=== PATIENT | male | born 1970 | race Caucasian/White ===

== ENCOUNTER 2017-06-25 17:53 | Emergency (ER) | payer MEDICAID ==
[~2017-06-25] VITALS: Ht 170.2 cm; Wt 65.8 kg
--- NOTE | 2017-06-25 18:00 | NUR ---
ASIA FROM [facility] FOR PYSCHIATRIC EVALUATION. PATIENT VERBALIZED HE WANNA GO ON KILLING SPREE AND KILL HIMSELF. DID NOT STATE ANY SPECIFIC PLAN. PATIENT'S VSS. SUICIDAL PRECAUTION OBSERVED. VSS
--- NOTE | 2017-06-25 18:04 | NUR ---
MD HUDSON AT BEDSIDE
[2017-06-25 18:13] LABS: BASOPHILS % (AUTO) 0.6 % (0.0-2.0); EOSINOPHILS % (AUTO) 0.9 % (0.0-6.0); HEMATOCRIT 40 % (39-51); HEMOGLOBIN 13.3 g/dL (13.5-17.5); LYMPHOCYTES # (AUTO) 1.1 /CMM (0.8-4.8); LYMPHOCYTES % (AUTO) 26.6 % (20.0-44.0); MEAN CORPUSCULAR HEMOGLOBIN 28 PG (26.0-33.0); MEAN CORPUSCULAR HGB CONC 34 g/dl (31.0-36.0); MEAN CORPUSCULAR VOLUME 83 fL (80-96); MONOCYTES # (AUTO) 0.4 /CMM (0.1-1.30); MONOCYTES % (AUTO) 9.8 % (2.0-12.0); NEUTROPHILS # (AUTO) 2.5 /CMM (1.8-8.9); NEUTROPHILS % (AUTO) 62.1 % (43.0-81.0); PLATELET COUNT (AUTO) 205 /CMM (150-450); RDW COEFFICIENT OF VARIATION 14.6 (11.5-15.0); RED BLOOD CELL COUNT(AUTO) 4.78 MIL/uL (4.5-6.0)
[2017-06-25 18:25] LABS: ALCOHOL, BLOOD < 3 mg/dL (0-0); CARBON DIOXIDE 26 mmol/L (21-32); CHLORIDE 103 mmol/L (98-107); CREATININE 0.8 mg/dL (0.6-1.3); GLUCOSE 109 mg/dL (74-106); POTASSIUM 3.5 mmol/L (3.5-5.1); SODIUM SERUM 137 mmol/L (136-145); UREA NITROGEN, BLOOD 11 mg/dL (7-18)
--- NOTE | 2017-06-25 19:02 | NUR ---
CALLED [facility]AN[facility] GROUND HOST/HOSTESS,ETA 1 HR.
--- NOTE | 2017-06-25 20:56 | NUR ---
REPORT GIVEN TO SHAHBAZ KING FORM DANII BRAUN FOR FRITZ
[2017-06-25 21:00] VITALS: BP 118/60
--- NOTE | 2017-06-25 21:45 | NUR ---
PATIENT TRANSFERRED/ DISCHARGED TO [facility]. PT VERBALIZED UNDERSTANDING OF PLAN OF CARE. TAXI VOUCHER PROVIDED.
== END 2017-06-25 21:47 | disposition home or self-care (01) ==
LOC: ER 17:55
DX: R45.851 Suicidal ideations (principal); F19.10 Other psychoactive substance abuse, uncomplicated; B19.20 Unspecified viral hepatitis C without hepatic coma; R45.850 Homicidal ideations; F20.9 Schizophrenia, unspecified; F31.9 Bipolar disorder, unspecified
CPT/HCPCS: 36415; 80048; 80305; 85025; 99285; A4606; G0480; Z7610

== ENCOUNTER 2017-06-30 10:24 | Emergency (ER) | payer MEDICAID ==
[~2017-06-30] VITALS: Ht 170.2 cm; Wt 61.2 kg
[2017-06-30 10:54] LABS: BASOPHILS % (AUTO) 0.1 % (0.0-2.0); EOSINOPHILS # (AUTO) 0.1 /CMM (0.0-0.7); EOSINOPHILS % (AUTO) 3.3 % (0.0-6.0); HEMATOCRIT 38 % (39-51); HEMOGLOBIN 12.7 g/dL (13.5-17.5); LYMPHOCYTES # (AUTO) 0.7 /CMM (0.8-4.8); LYMPHOCYTES % (AUTO) 19.4 % (20.0-44.0); MEAN CORPUSCULAR HEMOGLOBIN 28 PG (26.0-33.0); MEAN CORPUSCULAR HGB CONC 34 g/dl (31.0-36.0); MEAN CORPUSCULAR VOLUME 83 fL (80-96); MONOCYTES # (AUTO) 0.4 /CMM (0.1-1.30); MONOCYTES % (AUTO) 11.6 % (2.0-12.0); NEUTROPHILS # (AUTO) 2.5 /CMM (1.8-8.9); NEUTROPHILS % (AUTO) 65.6 % (43.0-81.0); PLATELET COUNT (AUTO) 171 /CMM (150-450); RDW COEFFICIENT OF VARIATION 15.4 (11.5-15.0); RED BLOOD CELL COUNT(AUTO) 4.53 MIL/uL (4.5-6.0); WHITE BLOOD COUNT (AUTO) 3.9 K/uL (4.3-11.0)
[2017-06-30] MEDS ORDERED: HYDROCODONE/APAP 5/325MG 1 EACH TABLET PO ONE (11:00)
[2017-06-30] MEDS ORDERED: PERMETHRIN 5% CRM 60 GM TUBE TP ONE (11:00)
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
[2017-06-30 11:03] LABS: BILIRUBIN,DIRECT 0.1 mg/dL (0.0-0.2); BILIRUBIN,TOTAL 0.3 mg/dL (0.2-1.0); CALCIUM, SERUM 8.1 mg/dL (8.5-10.1); CREATININE 0.9 mg/dL (0.6-1.3); POTASSIUM 3.3 mmol/L (3.5-5.1); TOTAL PROTEIN, SERUM 6.7 g/dL (6.4-8.2)
--- NOTE | 2017-06-30 11:06 | NUR ---
PT KNOCKED DOWN THE MONITOR, SPITTING IN THE FLOOR AND THREATENING EVERYBODY. ERMD MADE AWARE. ORDER FOR 4 PT RESTRAINT.
[2017-06-30] MEDS ORDERED: HALOPERIDOL LACTATE INJ 5 MG/ML VIAL ONE (11:11)
[2017-06-30] MEDS ORDERED: LORAZEPAM INJ 2 MG/ML VIAL ONE (11:12)
--- NOTE | 2017-06-30 11:29 | NUR ---
MARVIN RN AT BEDSIDE FOR PSYCH EVAL.
[2017-06-30] MEDS ORDERED: HALOPERIDOL LACTATE INJ 5 MG/ML VIAL IM ONE (11:30)
[2017-06-30] MEDS ORDERED: LORAZEPAM INJ 2 MG/ML VIAL IM ONE (11:30)
[2017-06-30 11:38] LABS: APPEARANCE,URINE Clear (CLEAR); BILIRUBIN,URINE Negative (NEGATIVE); BLOOD, URINE Negative Ery/uL (NEGATIVE); COLOR,URINE Yellow (YELLOW); KETONES,URINE Negative (NEGATIVE); LEUKOCYTE ESTERASE ,URINE Negative (NEGATIVE); NITRITE, URINE Negative (NEGATIVE); PH,URINE 6.5 (5.0-8.0); PROTEIN,URINE Trace mg/dl (NEGATIVE); UGLUCOSE Negative (NEGATIVE); UROBILINOGEN,URINE 0.2 EU/dL (0.2)
[2017-06-30 11:42] LABS: BACTERIA,URINE Rare /HPF (None Seen); RBC,URINE 0-2 /HPF (0-2); SQUAMOUS EPITHELIAL CELL,UR Few /HPF (None Seen); WBC,URINE 0-2 /HPF (0-3)
--- NOTE | 2017-06-30 13:00 | NUR ---
PT IS SLEEPING. ON MONITOR. STABLE VITALS. WILL CONT TO MONITOR.
--- NOTE | 2017-06-30 13:30 | NUR ---
PT IS SLEEPING. 4 PT RESTRAINTS DISCONTINUED PER ERMD ORDER. WILL CONTINUE TO MONITOR PT.
--- NOTE | 2017-06-30 15:30 | NUR ---
SLEEPING IN BED. ON MONITOR. STABLE VITALS.
--- NOTE | 2017-06-30 19:05 | NUR ---
PT WAS PROVIDED W/ SANDWICH AND ORAL FLUIDS. STABLE VITALS. COOPERATIVE AND RELAXED AT THIS TIME. WILL CONT TO MONITOR.
--- NOTE | 2017-06-30 22:00 | NUR ---
PT IS AWAKE. COOPERATIVE TO STAFF. DIRECTED TO WASH ENTIRE BODY TO GET OFF PERMETHRINE CREAM DIRECTED. PROVIDED W/ [place] GOWN.
--- NOTE | 2017-06-30 23:39 | NUR ---
REPORT TO CHARGE NURSE ANGEL FOR FRITZ.
--- NOTE | 2017-07-01 03:00 | NUR ---
PATIENT AWAKE, VSS
--- NOTE | 2017-07-01 09:35 | NUR ---
CALLED [facility], AT [phone], BABAR FOR DISCHARGES
--- NOTE | 2017-07-01 11:00 | NUR ---
ASSUME PT CARE. RESTING IN BED. AWAKE. CALM. COOPERATIVE. VITALS TAKEN. STABLE. ALL NEEDS PROVIDED. WILL CONTINUE TO MONITOR.
--- NOTE | 2017-07-01 14:15 | NUR ---
PT NOW IS C/O BACK PAIN. [place] [employer] MADE AWARE.
[2017-07-01] MEDS ORDERED: HYDROCODONE/APAP 5/325MG 1 EACH TABLET ONE (14:23)
--- NOTE | 2017-07-01 14:25 | NUR ---
SPOKE TO PHARMACY REGARDING PT'S DISCHARGE STATUS W/ OMNICEL. WILL NOT BRING ORDERED MEDICATION AND WAS TOLD TO TALK TO ADMITTING.
[2017-07-01] MEDS ORDERED: HYDROCODONE/APAP 5/325MG 1 EACH TABLET PO ONE (14:30)
--- NOTE | 2017-07-01 19:34 | NUR ---
RN Inspector [employer] called for sitter.
--- NOTE | 2017-07-01 20:09 | NUR ---
CALLED [facility] TO FOLLOW UP WITH AN UPDATE, SPOKE WITH LOI SHE SAID SHE SAID THEIR FACILITY IS FULL AND CANT ACCEPT ANY PATIENTS.
--- NOTE | 2017-07-01 23:38 | NUR ---
pt ambulatory w/ steady gait to nurse's station, inquiring on status. pt updated on status. Awaiting for available bed at [facility].
--- NOTE | 2017-07-02 00:02 | NUR ---
pt ambulatory w/ steady gait to restroom, resp even & unlabored nad noted. Vidor and water provided.
--- NOTE | 2017-07-02 01:10 | NUR ---
pt sitting in bed, watching tv w/ resp even & unlabored, nad noted.
--- NOTE | 2017-07-02 03:04 | NUR ---
PT AMBULATORY W/ STEADY GAIT TO NURSE'S STATION, INQUIRING ON STATUS. ADVISED NO AVAILABLE BEDS AT [facility] AT THIS TIME. AWAITING BED.
--- NOTE | 2017-07-02 05:55 | NUR ---
PER LILI AT [facility], NO AVAILABLE BEDS AT THIS TIME, PENDING PT DISCHARGES IN AM, TO CHECK BACK AFTER 8AM.
--- NOTE | 2017-07-02 06:59 | NUR ---
DIETARY CALLED FOR REG SAFETY TRAY.
[2017-07-02 07:00] VITALS: BP 112/77
--- NOTE | 2017-07-02 07:21 | NUR ---
WALKED OUT OF ER WITH HIS BELONGINGS IN A ROLLING CART,NAD,DENIES SUICIDAL IDEATION AT THIS TIME,INSTRUCTED TO COME BACK IF HE NEEDS HELP.
== END 2017-07-02 07:35 | disposition left against medical advice (07) ==
LOC: ER 10:24
DX: R45.851 Suicidal ideations (principal); K85.90 Acute pancreatitis without necrosis or infection, unspecified; B19.20 Unspecified viral hepatitis C without hepatic coma; F17.210 Nicotine dependence, cigarettes, uncomplicated; G89.29 Other chronic pain; R45.850 Homicidal ideations
CPT/HCPCS: 36415; 71010-TC; 80048-TC; 80076-TC; 81000-TC; 83690-TC; 85025-TC; A4606; J1630; J2060; Z7610

== ENCOUNTER 2017-07-16 08:33 | Emergency (ER) | payer MEDICAID ==
[~2017-07-16] VITALS: Ht 175.3 cm; Wt 72.6 kg
--- NOTE | 2017-07-16 08:33 | NUR ---
BB SELF SUICIDAL IDEATION NO PLANS PT HOMICIDAL TO HURT HIS PCP.
[2017-07-16 09:07] LABS: BASOPHILS % (AUTO) 0.4 % (0.0-2.0); EOSINOPHILS # (AUTO) 0.1 /CMM (0.0-0.7); EOSINOPHILS % (AUTO) 1.9 % (0.0-6.0); HEMATOCRIT 40 % (39-51); HEMOGLOBIN 13.6 g/dL (13.5-17.5); LYMPHOCYTES # (AUTO) 0.8 /CMM (0.8-4.8); MEAN CORPUSCULAR HEMOGLOBIN 29 PG (26.0-33.0); MEAN CORPUSCULAR HGB CONC 34 g/dl (31.0-36.0); MEAN CORPUSCULAR VOLUME 83 fL (80-96); MONOCYTES # (AUTO) 0.4 /CMM (0.1-1.30); MONOCYTES % (AUTO) 14.4 % (2.0-12.0); NEUTROPHILS # (AUTO) 1.5 /CMM (1.8-8.9); NEUTROPHILS % (AUTO) 53.3 % (43.0-81.0); PLATELET COUNT (AUTO) 170 /CMM (150-450); RDW COEFFICIENT OF VARIATION 14.5 (11.5-15.0); RED BLOOD CELL COUNT(AUTO) 4.79 MIL/uL (4.5-6.0); WHITE BLOOD COUNT (AUTO) 2.8 K/uL (4.3-11.0)
--- NOTE | 2017-07-16 09:12 | NUR ---
CHRIS AUSTIN LCSW CALLED FOR PSYCH EVAL
[2017-07-16 09:25] LABS: ALANINE AMINOTRANSFERASE 61 U/L (12-78); ALBUMIN 3.6 g/dL (3.4-5.0); ALCOHOL, BLOOD < 3 mg/dL (0-0); ALKALINE PHOSPHATASE 119 U/L (46-116); ASPARTATE AMINOTRANSFERASE 78 U/L (15-37); BILIRUBIN,DIRECT 0.2 mg/dL (0.0-0.2); BILIRUBIN,TOTAL 0.6 mg/dL (0.2-1.0); CALCIUM, SERUM 8.7 mg/dL (8.5-10.1); CARBON DIOXIDE 28 mmol/L (21-32); CHLORIDE 103 mmol/L (98-107); GLUCOSE 103 mg/dL (74-106); POTASSIUM 3.7 mmol/L (3.5-5.1); SODIUM SERUM 137 mmol/L (136-145); UREA NITROGEN, BLOOD 26 mg/dL (7-18)
[2017-07-16 09:26] LABS: ACETAMINOPHEN 0 ug/ml (10-30)
--- NOTE | 2017-07-16 09:28 | NUR ---
URINE SAMPLE COLLECTED SENT TO LAB
[2017-07-16 09:51] LABS: APPEARANCE,URINE SL CLOUDY (CLEAR); BILIRUBIN,URINE NEGATIVE (NEGATIVE); BLOOD, URINE NEGATIVE Ery/uL (NEGATIVE); KETONES,URINE NEGATIVE (NEGATIVE); LEUKOCYTE ESTERASE ,URINE NEGATIVE (NEGATIVE); NITRITE, URINE NEGATIVE (NEGATIVE); PROTEIN,URINE TRACE mg/dl (NEGATIVE); UGLUCOSE NEGATIVE (NEGATIVE)
[2017-07-16 09:52] LABS: COLOR,URINE DARK YELLOW (YELLOW)
[2017-07-16 10:14] LABS: BACTERIA,URINE None seen /HPF (None Seen); RBC,URINE 0-3 /HPF (0-2); SQUAMOUS EPITHELIAL CELL,UR Few /HPF (None Seen)
[2017-07-16 10:47] LABS: BAND % (MANUAL) 1 % (0.0-5.0); EOSINOPHILS % (MANUAL) 4 % (0-4); LYMPHOCYTES % (MANUAL) 28 % (16-48); MONOCYTES % (MANUAL) 12 % (0-11.0); NEUTROPHILS % (MANUAL) 55 (42-76)
--- NOTE | 2017-07-16 11:48 | NUR ---
CALLED [facility] FOR TRANSPORT ETA [phone] TRIP#[id number]
--- NOTE | 2017-07-16 12:02 | NUR ---
PATIENT WILL BE TRANSFFERD TO [facility] WILL BE ACCEPTING NUMBER TO GIVE REPORT EXT [phone]
[2017-07-16 12:22] VITALS: BP 123/78
--- NOTE | 2017-07-16 12:24 | NUR ---
REPORT GIVEN TO YARED AT [facility]. AWAITING TRANSFER.
== END 2017-07-16 12:52 ==
LOC: ER 08:34
DX: F29 Unspecified psychosis not due to a substance or known physiological condition (principal); B19.20 Unspecified viral hepatitis C without hepatic coma; F17.200 Nicotine dependence, unspecified, uncomplicated; F31.9 Bipolar disorder, unspecified; F20.9 Schizophrenia, unspecified
CPT/HCPCS: 36415; 80048-TC; 80076-TC; 80305; 81000-TC; 85025-TC; A4606; G0480; Z7610

== ENCOUNTER 2017-07-24 23:53 | Emergency (ER) | payer MEDICAID ==
[~2017-07-24] VITALS: Ht 177.8 cm; Wt 77.1 kg
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
--- NOTE | 2017-07-25 01:15 | NUR ---
Patient discharged to home in stable condition. Written and verbal after care instructions given. Patient verbalizes understanding of instruction. PT ambulatory with a steady gait
[2017-07-25 01:19] VITALS: BP 130/80
== END 2017-07-25 01:20 | disposition home or self-care (01) ==
LOC: ER 23:55
DX: G89.29 Other chronic pain (principal); M54.9 Dorsalgia, unspecified; F20.9 Schizophrenia, unspecified; B19.20 Unspecified viral hepatitis C without hepatic coma; F17.200 Nicotine dependence, unspecified, uncomplicated
CPT/HCPCS: 99283; A4606; Z7610

== ENCOUNTER 2017-08-11 19:01 | Emergency (ER) | payer MEDICAID ==
--- NOTE | 2017-08-11 20:09 | NUR ---
INFORMED BY ADMITTING "PT JUST WALKED OUT OF THE LOBBY AND LEFT"
== END 2017-08-11 20:10 | disposition left against medical advice (07) ==
LOC: ER 19:03
DX: Z53.21 Procedure and treatment not carried out due to patient leaving prior to being seen by health care provider (principal)

== ENCOUNTER 2017-08-11 23:22 | Emergency (ER) | payer MEDICAID ==
[~2017-08-11] VITALS: Ht 177.8 cm; Wt 76.2 kg
[2017-08-11 23:44] VITALS: BP 116/78
--- NOTE | 2017-08-12 | NUR ---
called pt in wr, no response
--- NOTE | 2017-08-12 00:39 | NUR ---
called pt in wr, no response
== END 2017-08-12 00:41 | disposition left against medical advice (07) ==
LOC: ER 23:23
DX: Z53.21 Procedure and treatment not carried out due to patient leaving prior to being seen by health care provider (principal)
CPT/HCPCS: A4606; Z7610

== ENCOUNTER 2017-08-12 08:41 | Emergency (ER) | payer MEDICAID ==
[~2017-08-12] VITALS: Ht 172.7 cm; Wt 77.1 kg
[2017-08-12 08:51] VITALS: BP 129/59
== END 2017-08-12 09:14 | disposition home or self-care (01) ==
LOC: ER 08:43
DX: F29 Unspecified psychosis not due to a substance or known physiological condition (principal); B86 Scabies; B19.20 Unspecified viral hepatitis C without hepatic coma; F31.9 Bipolar disorder, unspecified; F20.9 Schizophrenia, unspecified; F10.10 Alcohol abuse, uncomplicated; F17.200 Nicotine dependence, unspecified, uncomplicated
CPT/HCPCS: 99281; A4606; Z7610; Z7502